=== PATIENT | female | born 1955 | race Two or more races ===

== ENCOUNTER → 2024-03-19 | Outpatient (CLI) | payer BC, SELFPAY ==
[2024-03-19 17:29] LABS: Basophils % (Auto) 0 % (0-2.5); Eosinophils # (Auto) 0.1 Thou/mm3 (0.0-0.5); Eosinophils % (Auto) 1 % (0-10); Hematocrit 43.5 % (36.0-46.0); Hemoglobin 14.1 g/dL (12.0-16.0); Immature Granulocytes % (Auto) 0 % (0-0); Immature Granulocytes Auto 0.02 Thou/mm3 (0.00-0.00); Lymphocytes # (Auto) 2.3 Thou/mm3 (1.0-4.8); Lymphocytes % (Auto) 36 % (10-50); Mean Corpuscular HGB Conc 32.4 g/dl (31.0-37.0); Mean Corpuscular Hemoglobin 29.2 pg (25.0-35.0); Mean Corpuscular Volume 90 fL (80-100); Monocytes # (Auto) 0.3 Thou/mm3 (0.0-0.8); Monocytes % (Auto) 5 % (0-12); Neutrophils # (Auto) 3.7 Thou/mm3 (1.8-7.7); Neutrophils % (Auto) 57 % (37-80); Nucleated Red Blood Cell % 0 /100 WBC (0); Platelet Count 264 Thou/mm3 (140-440); RDW Standard Deviation 47.2 fL (36.4-46.3); Red Blood Count 4.83 Miln/mm3 (4.00-5.20); White Blood Count 6.4 Thou/mm3 (3.6-11.0)
[2024-03-19 17:57] LABS: Alanine Aminotransferase 15 U/L (10-49); Albumin, Serum 4.9 gm/dL (3.4-4.8); Albumin/Globulin Ratio 2.5 (1.2-2.2); Alkaline Phosphatase 93 U/L (46-116); Anion Gap 4 (7-16); Aspartate Amino Transferase 21 U/L (0-34); BUN/Creatinine Ratio 15 Ratio (12-20); Bilirubin,Total 0.4 mg/dL (0.3-1.2); Blood Urea Nitrogen 12 mg/dL (9-23); Carbon Dioxide 31.1 mMol/L (20.0-31.0); Chloride 105 mMol/L (98-107); Creatinine (Component) 0.8 mg/dL (0.6-1.3); Glucose 66 mg/dL (74-106); Osmolality,Calculated 277 (275-295); Sodium 140 mMol/L (136-145); Total Protein 6.9 gm/dL (5.7-8.2); eGFR > 60 See Note
[2024-03-19 17:59] LABS: Carcinoembryonic Antigen 3.8 ng/mL (0.0-5.0)
== END | disposition home or self-care (01) ==
LOC: SCTO 16:51
PROVIDERS: PCP Internal Medicine; Referring Provider Nurse Practitioner Family; Visit Provider Nurse Practitioner Family
DX: C50.311 Malignant neoplasm of lower-inner quadrant of right female breast (principal)
CPT/HCPCS: 36415; 80053; 82378; 85025

== ENCOUNTER 2024-03-20 13:28 | Outpatient (RCR) | payer BC, SELFPAY | END 2024-04-13 23:59 | disposition home or self-care (01) | LOC: SCTC 13:28 | PROVIDERS: PCP Internal Medicine; Referring Provider Internal Medicine; Visit Provider Nurse Practitioner Family | DX: Z08 Encounter for follow-up examination after completed treatment for malignant neoplasm (principal); Z85.3 Personal history of malignant neoplasm of breast; M85.80 Other specified disorders of bone density and structure, unspecified site; Z87.19 Personal history of other diseases of the digestive system | CPT/HCPCS: 99212; G0463 ==

== ENCOUNTER → 2024-06-03 | Outpatient (BNVA) | payer BC, SELFPAY | END | disposition home or self-care (01) | PROVIDERS: PCP Internal Medicine; Referring Provider Internal Medicine; Visit Provider Urology | DX: N39.46 Mixed incontinence (principal); I10 Essential (primary) hypertension; E78.2 Mixed hyperlipidemia; C50.911 Malignant neoplasm of unspecified site of right female breast; Z92.3 Personal history of irradiation; R41.81 Age-related cognitive decline; F32.9 Major depressive disorder, single episode, unspecified | CPT/HCPCS: 81003; 99212; G0463 ==

== ENCOUNTER → 2024-06-03 | Outpatient (CLI) | payer BC, SELFPAY ==
--- NOTE | 2024-06-03 07:00 | XR_ITS ---
Examination: MRI brain without intravenous contrast. Date and time of exam: June 03, 2024 0704 hours INDICATIONS: Amnesia increasing memory loss over the last 2 years COMPARISON: 02/06/2019 Technique: Multiple axial and sagittal images of the brain obtained. Siemens high-resolution 1.5 Ruth short bore scanners utilized. Sagittal sections, T1-weighted, TR 500, TE 14, are performed. Axial sections proton-density and T2-weighted have been obtained. Inversion recovery axial images, TR 9, 260, TE 111, TI 2500. Diffusion weighted images, axial sections, TR 4800, TE 128, B value 1000 Axial sections, ADC map, TR 4800, TE 128 Findings: Enlargement of the sella turcica is not present. The optic chiasm and infundibular are not remarkable. Prepontine and interpeduncular cisterns are not enlarged. There is no localized enlargement of the medulla or ap. Fourth ventricle and cerebellar tonsils appear normal in position. No subacute area of hemorrhage density is seen. Mass in the cerebellopontine angle region is not evident. Globes symmetrical. Orbital musculature including medial lateral rectus muscles do not exhibit abnormality. Diffusion-weighted images demonstrate no focus of restricted diffusion. Increased white matter signal evident more prominent compared to 02/06/2019 Mass effect upon the ventricular system is not identified. Impression: Negative for acute hemorrhage mass effect or midline shift No acute infarct More prominent chronic microvascular white matter change compared to 02/06/2019
== END | disposition home or self-care (01) ==
LOC: SMRI 06:42
PROVIDERS: Referring Provider Psychiatry & Neurology Neurology; Visit Provider Psychiatry & Neurology Neurology
DX: R90.82 White matter disease, unspecified (principal)
CPT/HCPCS: 70551

== ENCOUNTER → 2024-09-13 | Outpatient (CLI) | payer BC, SELFPAY ==
--- NOTE | 2024-09-13 10:30 | XR_ITS ---
Examination: Screening digital mammography, bilateral Computer aided detection 3-D breast Tomosynthesis, bilateral Date and time of exam: September 13, 2024 1014 hours Compared to mammograms dating to February 15, 2018 Indication: Screening Technique: Nonmagnified MLO, CC views of the breasts to been obtained, reconstructed from 3-D Tomosynthesis images. R2 computer aided detection program utilized for evaluation of suspicious masses and/or abnormal calcifications. 3-D Tomosynthesis images obtained. Findings: Scattered areas of fibroglandular density Stable scar formation right breast consistent with treated right breast cancer No interval suspicious masses Impression: BI-RADS category II: Benign Findings. Recommend 1 year follow-up mammogram.
== END | disposition home or self-care (01) ==
LOC: CDIM 10:01
PROVIDERS: Referring Provider Nurse Practitioner Family; Visit Provider Nurse Practitioner Family
DX: Z12.31 Encounter for screening mammogram for malignant neoplasm of breast (principal); R92.323 Mammographic fibroglandular density, bilateral breasts
CPT/HCPCS: 77063; 77067

== ENCOUNTER → 2024-09-16 | Outpatient (CLI) | payer BC, SELFPAY ==
[2024-09-16 10:39] LABS: Collection Type, Urine Clean Catch
[2024-09-16 11:18] LABS: Basophils % (Auto) 0 % (0-2.5); Eosinophils # (Auto) 0.1 Thou/mm3 (0.0-0.5); Eosinophils % (Auto) 1 % (0-10); Hematocrit 50.8 % (36.0-46.0); Hemoglobin 16.3 g/dL (12.0-16.0); Immature Granulocytes % (Auto) 0 % (0-0); Immature Granulocytes Auto 0.02 Thou/mm3 (0.00-0.00); Lymphocytes % (Auto) 34 % (10-50); Mean Corpuscular HGB Conc 32.1 g/dl (31.0-37.0); Mean Corpuscular Hemoglobin 29.3 pg (25.0-35.0); Mean Corpuscular Volume 91 fL (80-100); Monocytes # (Auto) 0.3 Thou/mm3 (0.0-0.8); Monocytes % (Auto) 5 % (0-12); Neutrophils # (Auto) 3.4 Thou/mm3 (1.8-7.7); Neutrophils % (Auto) 59 % (37-80); Nucleated Red Blood Cell % 0 /100 WBC (0); Platelet Count 290 Thou/mm3 (140-440); RDW Standard Deviation 48.5 fL (36.4-46.3); Red Blood Count 5.57 Miln/mm3 (4.00-5.20); White Blood Count 5.8 Thou/mm3 (3.6-11.0)
[2024-09-16 11:32] LABS: Alanine Aminotransferase 25 U/L (10-49); Alkaline Phosphatase 100 U/L (46-116); Anion Gap 8 (7-16); Aspartate Amino Transferase 26 U/L (0-34); BUN/Creatinine Ratio 8 Ratio (12-20); Bilirubin,Total 0.5 mg/dL (0.3-1.2); Blood Urea Nitrogen 6 mg/dL (9-23); Calcium 9.8 mg/dL (8.3-10.6); Calcium (Corrected) 9.8 mg/dL (8.5-10.1); Carbon Dioxide 27.1 mMol/L (20.0-31.0); Cardiac Risk Estimate 2.8 RATIO (3.7-5.6); Chloride 108 mMol/L (98-107); Cholesterol 165 mg/dL (132-200); Creatinine (Component) 0.8 mg/dL (0.6-1.3); Globulin 2.5 gm/dL (2.3-3.5); Glucose 102 mg/dL (74-106); HDL Cholesterol 59 mg/dL (40-60); LDL Cholesterol,Calculated 81 mg/dL (0-130); Osmolality,Calculated 282 (275-295); Potassium 4.6 mMol/L (3.4-5.1); Sodium 143 mMol/L (136-145); Thyroid Stimulating Hormone 1.49 uIU/mL (0.55-4.78); Total Protein 7.5 gm/dL (5.7-8.2); Triglycerides 126 mg/dL (30-150); eGFR > 60 See Note
[2024-09-16 11:40] LABS: Glucose Estimated Average 120 mg/dL (80-131); Hemoglobin A1C 5.8 % Hgb (4.8-6.0)
[2024-09-16 11:48] LABS: Bilirubin,Urine Negative (Negative); Blood,Urine Trace (Negative); Clarity,Urine Turbid (Clear/Hazy); Color,Urine Yellow (Lt Yel-Yel); Glucose, Urine Negative (Negative); Ketones,Urine Negative (Negative); Leukocyte Esterase,Urine Positive (Negative); Nitrite,Urine Negative (Negative); Protein,Urine 1+ (Neg - Trace); RBC,Urine 9 /hpf (0-3); Specific Gravity,Urine 1.024 (1.001-1.035); Squamous Epithelial Cell,Urine 27 /hpf (0-5); Urobilinogen,Urine Negative mg/dL (0.0-1.0); WBC,Urine 55 /hpf (0-5)
== END | disposition home or self-care (01) ==
PROVIDERS: PCP Internal Medicine; Referring Provider Internal Medicine; Visit Provider Nurse Practitioner Family
DX: C50.311 Malignant neoplasm of lower-inner quadrant of right female breast (principal); E11.9 Type 2 diabetes mellitus without complications; I10 Essential (primary) hypertension; E78.5 Hyperlipidemia, unspecified; K21.9 Gastro-esophageal reflux disease without esophagitis
CPT/HCPCS: 36415; 80053; 80061; 81001; 82378; 83036; 84443; 85025

== ENCOUNTER → 2024-09-30 | Outpatient (BNVA) | payer BC, SELFPAY | END | disposition home or self-care (01) | PROVIDERS: PCP Internal Medicine; Referring Provider Internal Medicine; Visit Provider Urology | DX: N39.0 Urinary tract infection, site not specified (principal); N39.46 Mixed incontinence; G89.4 Chronic pain syndrome; R10.2 Pelvic and perineal pain; I10 Essential (primary) hypertension; R41.81 Age-related cognitive decline; E78.2 Mixed hyperlipidemia; M54.17 Radiculopathy, lumbosacral region; Z85.3 Personal history of malignant neoplasm of breast; F32.9 Major depressive disorder, single episode, unspecified; E66.9 Obesity, unspecified; Z68.29 Body mass index [BMI] 29.0-29.9, adult; Z87.891 Personal history of nicotine dependence; K21.9 Gastro-esophageal reflux disease without esophagitis | CPT/HCPCS: 51701; 81003; 99212; G0463 ==

== ENCOUNTER → 2024-10-08 | Outpatient (CLI) | payer BC, SELFPAY ==
[2024-10-08 17:07] LABS: Misc Send Out* See Sep Rpt
[2024-10-08 17:35] LABS: Basophils % (Auto) 0 % (0-2.5); Eosinophils % (Auto) 0 % (0-10); Hematocrit 44.6 % (36.0-46.0); Immature Granulocytes % (Auto) 0 % (0-0); Immature Granulocytes Auto 0.03 Thou/mm3 (0.00-0.00); Lymphocytes # (Auto) 2.9 Thou/mm3 (1.0-4.8); Lymphocytes % (Auto) 29 % (10-50); Mean Corpuscular HGB Conc 33.6 g/dl (31.0-37.0); Mean Corpuscular Hemoglobin 29.8 pg (25.0-35.0); Mean Corpuscular Volume 89 fL (80-100); Monocytes # (Auto) 0.5 Thou/mm3 (0.0-0.8); Monocytes % (Auto) 5 % (0-12); Neutrophils # (Auto) 6.5 Thou/mm3 (1.8-7.7); Neutrophils % (Auto) 65 % (37-80); Nucleated Red Blood Cell % 0 /100 WBC (0); Platelet Count 285 Thou/mm3 (140-440); RDW Standard Deviation 47.1 fL (36.4-46.3); Red Blood Count 5.04 Miln/mm3 (4.00-5.20)
[2024-10-08 18:19] LABS: Alanine Aminotransferase 17 U/L (10-49); Albumin, Serum 4.8 gm/dL (3.4-4.8); Albumin/Globulin Ratio 2.4 (1.2-2.2); Alkaline Phosphatase 94 U/L (46-116); Anion Gap 8 (7-16); Aspartate Amino Transferase 21 U/L (0-34); BUN/Creatinine Ratio 8 Ratio (12-20); Bilirubin,Total 0.4 mg/dL (0.3-1.2); Blood Urea Nitrogen 6 mg/dL (9-23); Calcium 9.7 mg/dL (8.3-10.6); Calcium (Corrected) 9.7 mg/dL (8.5-10.1); Carbon Dioxide 29.6 mMol/L (20.0-31.0); Chloride 105 mMol/L (98-107); Creatinine (Component) 0.8 mg/dL (0.6-1.3); Glucose 96 mg/dL (74-106); Osmolality,Calculated 282 (275-295); Sodium 143 mMol/L (136-145); Total Protein 6.8 gm/dL (5.7-8.2); eGFR > 60 See Note
== END | disposition home or self-care (01) ==
LOC: SCTO 16:32
PROVIDERS: PCP Internal Medicine; Referring Provider Nurse Practitioner Family; Visit Provider Nurse Practitioner Family
DX: C50.311 Malignant neoplasm of lower-inner quadrant of right female breast (principal)
CPT/HCPCS: 36415; 80053; 85025

== ENCOUNTER 2024-10-09 15:38 | Outpatient (RCR) | payer BC, SELFPAY | END 2024-10-12 23:59 | disposition home or self-care (01) | LOC: SCTC 15:38 | PROVIDERS: PCP Internal Medicine; Referring Provider Internal Medicine; Visit Provider Nurse Practitioner Family | DX: C50.311 Malignant neoplasm of lower-inner quadrant of right female breast (principal); Z17.0 Estrogen receptor positive status [ER+]; Z17.21 Progesterone receptor positive status; Z17.32 Human epidermal growth factor receptor 2 negative status; Z86.2 Personal history of diseases of the blood and blood-forming organs and certain disorders involving the immune mechanism | CPT/HCPCS: 99212; G0463 ==

== ENCOUNTER → 2024-11-11 | Outpatient (BNVA) | payer BC, SELFPAY | END | disposition home or self-care (01) | PROVIDERS: PCP Internal Medicine; Referring Provider Internal Medicine; Visit Provider Urology | DX: N32.89 Other specified disorders of bladder (principal); N35.92 Unspecified urethral stricture, female; G89.4 Chronic pain syndrome; R10.2 Pelvic and perineal pain; C50.911 Malignant neoplasm of unspecified site of right female breast; Z92.3 Personal history of irradiation | CPT/HCPCS: 52224; 96372; A4217; A4649; C1894; J1580; A9270 ==

== ENCOUNTER → 2025-01-14 | Outpatient (CLI) | payer BC, SELFPAY ==
--- NOTE | 2025-01-14 08:45 | XR_ITS ---
Examination: Retroperitoneal ultrasound, complete Technique: Multiple high resolution grayscale images of the retroperitoneum obtained, including kidneys and bladder. Exam date and time:January 14, 2025 0722 hours INDICATIONS: Bilateral flank and back pain beginning 2 months ago, diagnosis uncontrolled hypertension FINDINGS: Right kidney 10.8 cm cortex 1.4 cm Midpole 19 mm cyst Left kidney 9.6 cm cortex 1.3 cm Mild renal parenchymal scar formation Contracted urinary bladder IMPRESSION: Bilateral renal cortical thinning Mild bilateral renal parenchymal scar formation
== END | disposition home or self-care (01) ==
PROVIDERS: PCP Internal Medicine; Referring Provider Internal Medicine; Visit Provider Internal Medicine
DX: N28.89 Other specified disorders of kidney and ureter (principal)
CPT/HCPCS: 76770

== ENCOUNTER → 2025-01-23 | Outpatient (CLI) | payer BC, SELFPAY ==
[2025-01-23 11:29] LABS: Albumin, Serum 4.8 gm/dL (3.4-4.8); Anion Gap 8 (7-16); BUN/Creatinine Ratio 7 Ratio (12-20); Blood Urea Nitrogen 5 mg/dL (9-23); Calcium 10.0 mg/dL (8.3-10.6); Calcium (Corrected) 10.0 mg/dL (8.5-10.1); Carbon Dioxide 28.6 mMol/L (20.0-31.0); Chloride 107 mMol/L (98-107); Creatinine (Component) 0.7 mg/dL (0.6-1.3); Glucose 102 mg/dL (74-106); Osmolality,Calculated 284 (275-295); Phosphorous 3.1 mg/dL (2.4-5.1); Potassium 4.5 mMol/L (3.4-5.1); Sodium 144 mMol/L (136-145); Uric Acid 3.1 mg/dL (3.1-7.8); eGFR > 60 See Note
[2025-01-27 06:37] LABS: Renin Activity, Plasma* 0.33 ng/mL/h (0.25-5.82)
== END | disposition home or self-care (01) ==
LOC: COPL 10:17
PROVIDERS: PCP Internal Medicine; Referring Provider Internal Medicine; Visit Provider Internal Medicine
DX: I10 Essential (primary) hypertension (principal)
CPT/HCPCS: 36415; 80069; 82533; 84244; 84550

== ENCOUNTER → 2025-01-30 | Outpatient (CLI) | payer BC, SELFPAY ==
[2025-01-30 10:10] LABS: Misc Send Out* See Sep Rpt
[2025-01-30 12:06] LABS: Sodium,Urine 20 mMol/L (20-110)
[2025-01-30 13:08] LABS: Sodium, Urine Volume 1975 mL/24hr (600-1800); Sodium,24hr Urine 40 mEq/24hr (40-220)
[2025-02-03 17:51] LABS: Cortisol, 24-Hr Volume 1900 mL
[2025-02-04 06:56] LABS: Cortisol, Free, 24-Hour Urine 17.1 mcg/24 h (4.0-50.0); Creatinine, 24-Hour Urine 0.76 g/24 h (0.50-2.15)
[2025-02-07 07:05] LABS: Aldosterone, 24-Hr Volume 1900 mL
[2025-02-10 07:10] LABS: Aldosterone, 24-Hour Urine 4.1 mcg/24 h; Creatinine, 24-Hour Urine 0.79 g/24 h (0.50-2.15)
== END | disposition home or self-care (01) ==
LOC: SLDO 09:54
PROVIDERS: PCP Internal Medicine; Referring Provider Internal Medicine; Visit Provider Internal Medicine
DX: I10 Essential (primary) hypertension (principal)
CPT/HCPCS: 82088; 82384; 82530; 82570; 84300; 84585

== ENCOUNTER → 2025-02-18 | Outpatient (CLI) | payer BC, SELFPAY ==
--- NOTE | 2025-02-18 08:45 | XR_ITS ---
EXAMINATION: Renal sonography Renal Doppler sonographic assessment kidneys including peak systolic arterial velocities Date and time: February 18, 2025, 0856 hours INDICATIONS: Hypertension 30 years. TECHNIQUE AND FINDINGS: Grayscale sonographic images the kidneys Assessment peak systolic velocities, calculation of resistive indices and renal aorta ratios Right kidney 11.0 cm, left kidney 10.4 cm, right renal cyst 28 mm left renal cyst 20 mm No elevation of peak systolic velocities. Normal resistive indices. Normal renal aorta ratios IMPRESSION: No Doppler sonographic findings of renal artery stenosis
== END | disposition home or self-care (01) ==
PROVIDERS: PCP Internal Medicine; Referring Provider Internal Medicine; Visit Provider Internal Medicine
DX: I10 Essential (primary) hypertension (principal)
CPT/HCPCS: 93975